=== PATIENT | female | born 1995 | race Asian ===

== ENCOUNTER → 2016-07-16 | Outpatient (CLI) | payer OTHER ==
[~2016-07-16] VITALS: Ht 142.2 cm; Wt 61.1 kg
[~2016-07-16] MED LIST: ACET-2247 PO; CLOT30CR23 TP; CLOTRIMAZOLE 1% 15 GM CREAM TP ONE; MULT-71 PO
[2016-07-16 13:58] VITALS: BP 130/65
== END | disposition home or self-care (01) ==
LOC: HBOWC 13:49
PROVIDERS: ATTEND Emergency Medicine
DX: L98.491 Non-pressure chronic ulcer of skin of other sites limited to breakdown of skin (principal)

== ENCOUNTER → 2016-07-30 | Outpatient (CLI) | payer OTHER ==
[2016-07-30 13:58] VITALS: BP 130/65
== END | disposition home or self-care (01) ==
LOC: HBOWC 13:56
PROVIDERS: ATTEND Emergency Medicine
DX: L98.491 Non-pressure chronic ulcer of skin of other sites limited to breakdown of skin (principal)

== ENCOUNTER → 2016-08-13 | Outpatient (CLI) | payer OTHER ==
[~2016-08-13] MED LIST changes: +LIDOCAINE HCL 4% 50 ML SOLUTION TP ONE
[2016-08-13 14:05] VITALS: BP 101/61
== END | disposition home or self-care (01) ==
LOC: HBOWC 13:31
PROVIDERS: ATTEND Emergency Medicine
DX: L98.491 Non-pressure chronic ulcer of skin of other sites limited to breakdown of skin (principal); L73.2 Hidradenitis suppurativa

== ENCOUNTER → 2016-08-27 | Outpatient (CLI) | payer OTHER ==
[~2016-08-27] MED LIST changes: -LIDOCAINE HCL 4% 50 ML SOLUTION TP ONE
[2016-08-27 15:04] VITALS: BP 118/64
== END | disposition home or self-care (01) ==
LOC: HBOWC 14:26
PROVIDERS: ATTEND Emergency Medicine Undersea and Hyperbaric Medicine
DX: L98.491 Non-pressure chronic ulcer of skin of other sites limited to breakdown of skin (principal)

== ENCOUNTER → 2016-09-12 | Outpatient (CLI) | payer OTHER ==
[~2016-09-12] MED LIST changes: -CLOTRIMAZOLE 1% 15 GM CREAM TP ONE
[2016-09-12 15:15] VITALS: BP 106/51
== END | disposition home or self-care (01) ==
LOC: HBOWC 14:32
PROVIDERS: ATTEND Emergency Medicine
DX: L98.491 Non-pressure chronic ulcer of skin of other sites limited to breakdown of skin (principal); L73.2 Hidradenitis suppurativa

== ENCOUNTER → 2016-09-26 | Outpatient (CLI) | payer OTHER ==
[2016-09-26 15:22] VITALS: BP 120/62
== END | disposition home or self-care (01) ==
LOC: HBOWC 14:28
PROVIDERS: ATTEND Emergency Medicine
DX: L98.491 Non-pressure chronic ulcer of skin of other sites limited to breakdown of skin (principal); Q90.9 Down syndrome, unspecified

== ENCOUNTER → 2016-10-10 | Outpatient (CLI) | payer OTHER ==
[~2016-10-10] MED LIST changes: -MULT-71 PO; +MULT1TAB70 PO
[2016-10-10 15:02] VITALS: BP 134/73
== END | disposition home or self-care (01) ==
LOC: HBOWC 14:37
PROVIDERS: ATTEND Emergency Medicine
DX: L98.491 Non-pressure chronic ulcer of skin of other sites limited to breakdown of skin (principal); L73.2 Hidradenitis suppurativa

== ENCOUNTER → 2016-10-24 | Outpatient (CLI) | payer OTHER ==
[2016-10-24 14:54] VITALS: BP 115/56
== END | disposition home or self-care (01) ==
LOC: HBOWC 14:33
PROVIDERS: ATTEND Emergency Medicine
DX: L98.491 Non-pressure chronic ulcer of skin of other sites limited to breakdown of skin (principal); Q90.9 Down syndrome, unspecified

== ENCOUNTER → 2016-11-07 | Outpatient (CLI) | payer OTHER ==
[2016-11-07 14:38] VITALS: BP 121/64
== END | disposition home or self-care (01) ==
LOC: HBOWC 14:18
PROVIDERS: ATTEND Emergency Medicine
DX: L98.491 Non-pressure chronic ulcer of skin of other sites limited to breakdown of skin (principal); L73.2 Hidradenitis suppurativa